=== PATIENT | female | born 1975 | race Caucasian/White ===

== ENCOUNTER 2025-04-14 10:15 | Inpatient (IN) | payer BC, OTHER ==
[~2025-04-14] VITALS: Ht 160 cm; Wt 123.0 kg
[2025-04-14 11:27] LABS: MEAN PLATELET VOLUME 8.0 FL (7.4-10.4); RED CELL DISTRIBUTION WIDTH 14.6 % (11.5-14.5)
--- NOTE | 2025-04-14 11:33 | ELECTROCARDIOGRAPH REPORT ---
[facility] Test Date: 2025-04-14 Test Time: 11:30:33 Pat Name: CALISTA STILES Department: [facility]-ER Patient ID: [facility]-[id number] Room: [place] [address] Gender: F Medical Orderly: : 1975 Requested By: PADMINI SHUKLA Order Number: [id number] Reading MD: Dr. Chuck Duffy Measurements Intervals [place] Rate: 128 P: 51 FL: 125 QRS: -32 QRSD: 85 T: 21 QT: 328 QTc: 479 Interpretive Statements Sinus tachycardia Left axis deviation Low voltage, precordial leads Consider anterior infarct Electronically Signed On 04-14-2025 20:30:[address] Chuck Duffy Please click the below link to view image of tracing.
[2025-04-14 11:37] LABS: CREATININE 1.24 MG/DL (0.40-0.90); TOTAL CARBON DIOXIDE 25.6 MMOL/L (24-32); eCRCL 46 ML/MIN; eGFR 46 ML/MIN
[2025-04-14] MEDS: normal saline 1000ml 1,000 ML IV ONE ×2 (11:58→20:35)
[2025-04-14] MEDS: ondansetron/PF 4mg/2ml inj IV ONE (12:51)
[2025-04-14] MEDS: morphine 4 MG/ML inj SYRINge IV ONE (12:53)
[2025-04-14 13:36] LABS: BANDS% (MANUAL) 25.0 % (0-10); METAMYLEOCYTES% (MANUAL) 1.0 % (0-0); MONOCYTES % (MANUAL) 3.0 % (2-12); NEUTROPHILS % (MANUAL) 71.0 % (42-75)
[2025-04-14 13:37] LABS: PLATELET ESTIMATE NORMAL
[2025-04-14] MEDS ORDERED: piperacillin/tazo 4.5gm/100ml 100 ML IV ONE (13:50)
[2025-04-14] MEDS: piperacillin/tazo 4.5gm/100ml 100 ML IV ONE (14:43)
[2025-04-14 14:57] LABS: URINE HCG NEGATIVE (NEG)
[2025-04-14 15:09] LABS: LEUKOCYTE ESTERASE ,URINE SMALL (Neg); NITRITES, URINE NEGATIVE (Neg); OCCULT BLOOD,URINE MODERATE (Neg)
[2025-04-14 15:27] LABS: UA COLLECTION TYPE URINAL
[2025-04-14 15:28] LABS: SQUAMOUS EPITHELIAL CELL,UR FEW /LPF (FEW)
[2025-04-14 15:29] LABS: YEAST FEW /HPF (NEGATIVE)
--- NOTE | 2025-04-14 15:31 | Physician Documentation ---
History of Present Illness ~ Chief Complaint: See Chief Complaint Stated Complaint: UROLOGY Time Seen by MD: 11:10 OK to notify your PCP?: Yes Mode of Arrival: EMS HPI 49-year-old patient with BMI 48, not diabetic, status post cholecystectomy, gastroesophageal reflux disease/PUD went to local emergency room for the lying to groin pain. She vomitus quite a bit and then she went the ER. In the emergency room they have done the CT scan of the abdomen pelvis in also found to have leukocytosis and UTI and she was treated with antibiotics. CT scan shows 10 mm stone in the pelviureteral junction and they sent her here for further evaluation and treatment by urologist. The patient is a pleasant person and very cooperative with the exam. Medication Reconciliation Allergies: Coded Allergies: No Known Allergies (Unverified , 04/14/25) Review of Systems ROS As stated above in the HPI, otherwise all systems are reviewed and negative. Physical Exam Vital Signs: Temperature: 98.9, Source: Oral, Heart Rate: 120, Respiratory Rate: 24, BP: 124/69, Pulse Oximetry: 93, Weight: 123.000 Physical Exam Vital signs reviewed and they are well within normal range except for tachycardia. Const: Comfortable Head: Atraumatic Eyes: Normal Conjunctiva ENT: Normal External Ears, Nose and Mouth. Moist mucous membranes Neck: Full range of motion. No meningismus Resp: Clear to auscultation bilaterally. Normal work of breathing Cardio: Regular rate and rhythm, no murmurs. Skin well perfused, initial heart rate was 135. Abd: Soft, tender in the left flank and costovertebral angle., non-distended. Normal bowel sounds. No rebound or guarding Skin: No petechiae or rashes. Warm and dry Back: No midline or flank tenderness Ext: No cyanosis, or edema Neuro: Awake and alert Psych: Normal Mood and Affect Progress Results/Orders Results/Orders Orders - PADMINI SHUKLA MD Culture Blood (04/14/25 11:18) BMP (04/14/25 11:18) Ct Abdomen Pelvis (04/14/25 15:13) Piperacillin/Tazo 4.5gm/100ml (Zosyn 4.5 (04/14/25 13:56) Hcg Serum Qt (04/14/25 10:30) Page Hospitalist (04/14/25 15:22) Page Hospitalist (04/14/25 15:23) Cult Urine + Tamms Ct (04/14/25 15:30) C-Reactive Protein (04/14/25 10:30) Hgb A1c (04/14/25 10:30) Liver Panel (04/14/25 10:30) TSH (04/14/25 10:30) Completed Orders - PADMINI SHUKLA MD Cbc/Diff (04/14/25 11:18) Hcg, Ur Ql (04/14/25 11:18) Electrocardiogram (04/14/25 11:18) Normal Saline 1000ml (0.9% Sodium Chlori (04/14/25 11:20) Lacticsepsis (04/14/25 11:18) Ct Abdomen Pelvis (04/14/25 15:13) Lactic,2hr (04/14/25 12:44) Morphine 4mg/Ml Inj. (Morphine Inj.) (04/14/25 12:45) Ondansetron Inj. (Zofran 4mg/2ml Vial) (04/14/25 12:45) Man Diff (04/14/25 10:30) Ringers Solution, Lacted (Lactated Ringe (04/14/25 13:50) Ua W/Microscopic, Cult If Ind (04/14/25 14:40) Medications Received in ER Medications (Trade) Dose Ordered Sig/Hardy Route PRN Reason Start Time Stop Time Status Last Admin Dose Admin Sodium Chloride 1,000 ml @ 200 mls/hr Q5H ONCE IV 04/14/25 11:20 04/14/25 16:19 DC 04/14/25 11:58 200 MLS/HR (morphine inj.) 4 mg ONCE ONCE IV 04/14/25 12:45 04/14/25 12:46 DC 04/14/25 12:53 4 MG (Zofran 4mg/2ml vial) 4 mg ONCE ONCE IV 04/14/25 12:45 04/14/25 12:46 DC 04/14/25 12:51 4 MG Piperacillin/ Tazobactam/ Dextrose 100 ml @ 25 mls/hr ONCE ONCE IV 04/14/25 13:56 04/14/25 17:49 04/14/25 14:43 25 MLS/HR Vital Signs 04/14/25 04/14/25 04/14/25 04/14/25 10:18 10:28 11:26 12:53 Temp 98.2 Pulse 122 127 Resp 24 29 15 15 B/P (MAP) 124/71 137/77 (97) Pulse Ox 96 97 04/14/25 04/14/25 12:56 15:41 Temp 98.9 Pulse 120 108 Resp 24 17 B/P (MAP) 124/69 (87) 120/80 (93) Pulse Ox 93 96 Laboratory Tests Test 04/14/25 10:30 04/14/25 12:54 04/14/25 14:40 White Blood Count 16.4 H Red Blood Count 4.84 Hemoglobin 13.9 Hematocrit 42.0 Mean Corpuscular Volume 87.0 Mean Corpuscular Hemoglobin 28.8 Mean Corpuscular Hemoglobin Concent 33.1 Red Cell Distribution Width 14.6 H Platelet Count 201 Mean Platelet Volume 8.0 Neutrophils (%) (Auto) 95.2 H Lymphocytes (%) (Auto) 2.2 L Monocytes (%) (Auto) 1.8 L Eosinophils (%) (Auto) 0.2 Basophils (%) (Auto) 0.6 Neutrophils # (Auto) 15.6 H Lymphocytes # (Auto) 0.4 L Monocytes # (Auto) 0.3 Eosinophils # (Auto) 0.0 Basophils # (Auto) 0.1 CBC Comment Differential Total Cells Counted 100 Neutrophils % (Manual) 71.0 Band Neutrophils % 25.0 H Monocytes % (Manual) 3.0 Metamyelocytes % 1.0 H Platelet Estimate Normal Red Blood Cell Morphology Normal Basophilic Stippling Sodium Level 142 Potassium Level 4.1 Chloride Level 107 Carbon Dioxide Level 25.6 Anion Gap 9 Blood Urea Nitrogen 12 Creatinine 1.24 H Estimated GFR/1.73 m2 46 BUN/Creatinine Ratio 9.7 L Glucose Level 164 H Hemoglobin A1c 6.1 Lactic Acid Level 3.0 H 2.8 H Calcium Level 8.1 L Albumin 2.8 L HCG Beta Subunit < 1.0 Chemistry Comments Urine Specimen Description Urinal Urine Color Yellow Urine Clarity Cloudy Urine pH 6.0 Urine Specific [place] >=1.030 Urine Protein 30 H Urine Glucose (UA) Negative Urine Ketones Trace H Urine Occult Blood Moderate H Urine Nitrite Negative Urine Bilirubin Small Urine Urobilinogen 0.2 Urine Leukocyte Esterase Small H Urine RBC 0-2 Urine WBC 50-100 H Urine Squamous Epithelial Cells Few Urine Bacteria 1+ Urine Yeast Few Urine Culture Indicated Indicated Volume Urine Centrifuged 10 ml Urine HCG, Qualitative Negative Urine Comment Microbiology Date/Time Source Procedure Growth Status 04/14/25 11:48 Blood Arm Left Blood Culture - Preliminary NEGATIVE (LESS THAN 24 HOURS) Resulted Medical Decision Making Findings ER Course/Med. Decision Making REVIEW of RECORD(S): Previous medical records here and/or external medical records, such as that provided directly by the patient, by EMS and/or outside medical facilities, if available, were reviewed. COMORBIDITIES MDM During the physical examination, the findings suggestive of acute life- threatening condition such as JVD, tracheal deviation, acidotic breathing, noisy stridorous breath sounds, pulses paradoxus, muffled heart sounds, unequal breath sounds, abdominal rigidity and rebound tenderness, focal neurological deficits, cool clammy skin, severe hypotension, severe tachycardia or bradycardia are absent. Patient presenting for . Vital signs reviewed. Patient is hemodynamically stable and does not meet SIRS criteria. Patient appears nontoxic on exam. Patient is a leukocytosis but renal functions are normal. She got fluids and IV Zosyn. TREATMENT/DISPOSITION: The patient's presentation is most consistent with acute pyelonephritis with obstructive uropathy left side. I have spoken with Dr. Talbot at 16:20 hours and he will let us know when he can take her for urological intervention. DISCLAIMER: Inadvertent spelling and grammatical errors are likely due to EMR/dictation software use and do not reflect on the overall quality of patient care. Note that the electronic time recorded on this note does not necessarily reflect the actual time of the patient encounter. Departure Disposition: ADMITTED INPATIENT Impression: Primary Impression: Pyelonephritis Additional Impressions: Urolithiasis Left ureteral stone Condition: Stable Referrals: NO PRIMARY CARE PROVIDER (PCP) Signature Scribe Signature: x Attestation: PADMINI Moody MD Apr 14, 2025 15:31
--- NOTE | 2025-04-14 15:41 | RADIOLOGY REPORT ---
Exam: CT CT ABDOMEN PELVIS History: Pain in the flank Comparison Study: None TECHNIQUE: Multidetector CT of the abdomen pelvis without IV contrast. Axial, coronal and sagittal multiplanar reformats were obtained from the axial data set by the technologist. Radiation Dose Information: CT Dose: CTDI volume is 35.83 mGy. Dose-length product is 2066.72 mGy*cm FINDINGS: Bibasilar atelectasis. Partially visualized heart is unremarkable. Mild hepatosplenomegaly with hepatic steatosis. Status post cholecystectomy. Pancreas and adrenal glands unremarkable. Asymmetric moderate left-sided perinephric fat stranding with moderate left Tullos nephrosis an obstructing 1.6 x 1 cm calculus over the left ureteropelvic junction. The right kidney is unremarkable. Urinary bladder is unremarkable. Status post hysterectomy. Mild gastric wall thickening. Small bowel loops unremarkable. Appendix is unremarkable. Distal rectal wall thickening. Small to moderate amount of fecal material within the colon. No evidence of intraperitoneal free air or free fluid. No evidence of aortic aneurysm. No significant lymphadenopathy. Small fat containing umbilical hernia. Minimal body wall edema. No evidence of acute osseous abnormalities. IMPRESSION: Moderate left hydro nephrosis with moderate asymmetric left-sided perinephric fat stranding and associated left 1.6 x 1 cm ureteropelvic junction obstructing calculus. Mild proctitis. Mild gastric wall thickening which may be due to inadequate distention with mild gastritis not excluded.
[2025-04-14] MEDS ORDERED: magnesium sulf-water 4G/100mL 100 ML IV PRN (15:45)
[2025-04-14] MEDS ORDERED: magnesium hydroxide 30ml (MOM) UD suspension PO PRN (15:45)
[2025-04-14] MEDS ORDERED: magnesium sulf-water 2g/50mL 50 ML IV PRN (15:45)
[2025-04-14] MEDS ORDERED: mag hydrox/Alum hydrox/simeth 30ml oral suspension PO PRN (15:45)
[2025-04-14] MEDS ORDERED: magnesium Cl slow-release 64mg tablet PO PRN (15:45)
[2025-04-14] MEDS ORDERED: potassium Cl 40MEQ/1/2NS 520ml 520 ML IV PRN (15:45)
[2025-04-14] MEDS ORDERED: potassium Cl 20 mEq SR tablet PO PRN (15:45)
[2025-04-14] MEDS ORDERED: HYDROcodone/acetaminophen 5mg/325mg tablet PO PRN (15:45)
[2025-04-14] MEDS: ringers solution, lacted 1,000 ML IV SCH (15:55)
[2025-04-14] MEDS ORDERED: morphine 4 MG/ML inj SYRINge IV PRN ×2 (15:58→15:59)
--- NOTE | 2025-04-14 16:04 | HISTORY AND PHYSICAL-Residence ---
History & Physical Providers to CC Resident Creating Document: JHONSTORMYJANNETKEYLA ~ History of Present Illness Reason for Admit\Complaint: Acute pyelonephritis, obstructive ureterolithiasis History of Present Illness This is a 49-year-old female patient who was transferred from [facility] for urology evaluation. Patient had sudden severe left lower quadrant abdominal pain 9/10 in intensity radiating to the back associated with diaphoresis, dizziness, nausea and vomiting. She denies fever or hematuria but complains of dysuria and urgency. No previous history of kidney stone reported. She was initially treated with IV fluids, ceftriaxone and pain management. Patient denies any other symptoms including chest pain, shortness of breath, productive cough or diarrhea. Pain is now controlled 4/10 in intensity. No other symptoms at this moment. 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[employer]) ROS Constitutional: Reports: malaise, weakness Eyes: Reports: no symptoms reported ENT: Reports: no symptoms reported Respiratory: Reports: no symptoms reported Cardiovascular: Reports: diaphoresis, lightheadedness Gastrointestinal: Reports: see HPI, abdomen distended, abdominal pain, nausea, vomiting, poor appetite, poor fluid intake Genitourinary: Reports: dysuria, frequency, decreased urine output Female Genitalia: Reports: no reported symptoms Neurological: Reports: dizziness Musculoskeletal: Reports: back pain Integumentary: Reports: no symptoms reported Allergic/Immunologic: Reports: no symptoms reported Hematologic/Lymphatic: Reports: no symptoms reported Endocrine: Reports: no symptoms reported Psychiatric: Reports: no symptoms reported Exam Vitals: Vital Signs Date Time Temp Pulse Resp B/P (MAP) Pulse Ox O2 Delivery O2 Flow Rate FiO2 04/14/25 15:41 108 17 120/80 (93) 96 04/14/25 12:56 98.9 General: General: Awake and Alert, no acute distress. Morbid obesity. Pain is controlled. HEENT: Conjunctiva pink, Sclera clear, Mucus Membranes dry. Neck: Supple without masses and tenderness. Resp: Unlabored. Lungs clear to auscultation bilaterally. Heart: Tachycardic, regular Rate and rhythm, normal S1 and S2 without murmur, rub or gallop. Abdomen: Distended, tenderness to palpation on the left lower quadrant, no rebound or guarding, no organomegaly. Positive left CVA tenderness. Extremities: Trace lower extremity peripheral edema. Peripheral pulses are palpable and symmetrical. No cyanosis or clubbing. Skin: Warm and Dry. Neuro: Awake, alert, oriented, speech is normal Cranial nerve exam-normal visual field, normal extraocular movements, normal facial sensations and facial movements, normal hearing, uvula in midline, tongue protrusion and shoulder shrugging normal Strength-normal bulk, normal tone, bilateral upper and lower extremity 5/5, deep tendon reflexes-2, absent Babinski Cerebellar-normal finger-nose test Diagnostic Data Last Recorded Lab Results: 04/14/25 1030 04/14/25 1030 Advance Care Planning Advanced Care plannin - 30 Minutes (I have discussed advanced care directives. Patient requests full code status.) Additional Plan Assessment 49-year-old female patient presents for severe left lower quadrant abdominal pain associated with poor oral intake, nausea, vomiting and dysuria. 1. Severe sepsis secondary to acute left pyelonephritis 2. Left hydronephrosis 2/2 acute ureteropelvic junction obstructing calculus. SIRS criteria (tachycardia, tachypnea, elevated WBC) + source of infection + elevated lactic acid Sudden severe LLQ pain associated with nausea, vomiting and anorexia Dysuria and urinary frequency, no hematuria reported Positive CVA tenderness, clinically dehydrated Heart rate 120bpm, EKG: Sinus tachycardia, no ischemic signs. Lactic acid 3.0, WBC 16.4, procalcitonin 1.19 , CRP 6.94 Urinalysis: 50-100 WBC, positive leukocyte esterase, occult blood positive Abdomen CT: Moderate left hydro nephrosis with moderate asymmetric left-sided perinephric fat stranding and associated left 1.6 x 1 cm ureteropelvic junction obstructing calculus. Plan Received 1000 mL of normal saline in the ER Started on lactated ringer 125 mL/hr Started on Zosyn 4.5g q8h Urology consulted in the ER, pending evaluation Pain management, Zofran/Reglan as needed, NPO 3. Acute kidney injury most likely related to vasomotor nephropathy, prerenal Patient clinically dehydrated Presents with sepsis, vomiting and poor oral intake Cr 1.24, BUN 12, baseline unknown Plan Continue IV fluids Ordered urine lytes Monitor daily 4. GERD Abdomen CT: Mild gastric wall thickening which may be due to inadequate distention with mild gastritis not excluded. Patient uses omeprazole OTC Started on pantoprazole 40 mg IV daily 5. Prediabetes 6. Morbid obesity Ordered A1c Nutrition consult is appreciated NPO for now Code Status: Full code DVT prophylaxis: Enoxaparin Analgesia/sedation: Morphine/[place] Line/tube: PIV GI prophylaxis: Pantoprazole Nutrition: NPO Prognosis: Guarded Physical therapy: Not ordered, patient ambulates normally Disposition: Admit to surgical floor. Pending Urology evaluation. Resident attestation The above note has been reviewed and supervised by a senior resident PGY2/PGY3 Patient was seen, examined and discussed with the attending physician Date of Service: Apr 14, 2025 Billing Provider: LJ ELDER MD, LUCAS, RES Apr 14, 2025 16:04
[2025-04-14] MEDS: ringers solution, lacted 1,000 ML IV ONE ×2 (16:27→16:50)
--- NOTE | 2025-04-14 16:41 | CONSULTATION REPORT ---
Consult Providers to CC ~ History of Present Illness Reason for Admit\Complaint: Left flank pain History of Present Illness Patient presented to an outside hospital with left sided flank pain. CT scan shows an obstructing stone at the left UPJ. Patient has been vomiting and having pain. Significant stranding around the left kidney. Allergies: Coded Allergies: No Known Allergies (Unverified , 04/14/25) ROS ROS A pertinent 10 point review of systems was performed and was normal except as otherwise noted. Please also see HPI for added review of systems. Exam Vitals: Vital Signs Date Time Temp Pulse Resp B/P (MAP) Pulse Ox O2 Delivery O2 Flow Rate FiO2 04/14/25 15:41 108 17 120/80 (93) 96 04/14/25 12:56 98.9 General: General: Awake and Alert, no acute distress. HEENT: HEENT: Conjunctiva pink, Sclera clear, Mucus Membranes moist. Neck: Neck: Supple without masses and tenderness. Chest: Resp: Unlabored. Cardiovascular: Heart: Tachycardic Abdomen: Abdomen: Soft and non tender no organomegaly Extremities: Extremities: No cyanosis,clubbing or edema. Skin: Skin: Warm and Dry. Diagnostic Data Last Recorded Lab Results: 04/14/25 1030 04/14/25 1030 Diagnostic Data: 04/14/25 CT Abdomen Pelvis: Left hydronephrosis with proximal ureteral stone. 13 mm in greatest dimension. Stranding around the left kidney. Problems: (1) Left ureteral stone Status: Acute Assessment & Plan: Left ureteral stone. Would benefit from stent placement in the operating room. I discussed risks of the surgery including infection, bleeding, damage to surrounding tissues, and need for subseuent procedures. I discussed benefits including decompression of the left kidney and improvement of pain. I discussed alternatives including medical expulsive therapy. with the patient. After discussion she consented to surgery. - NPO after midnight - OR tomorrow for cystoscopy, left retrograde pyelogram, left ureteral stent placement HO MORALES MD Apr 14, 2025 16:41
--- NOTE | 2025-04-14 17:29 | RADIOLOGY REPORT ---
CHEST RADIOGRAPH Indication: Sepsis, elevated procalcitonin Technique: Frontal and lateral view of the chest was obtained Comparison: None FINDINGS: Lines and Tubes: None Lungs: Clear Pleura: No effusion. No pneumothorax. Cardiomediastinal contours: Unremarkable Bones: Unremarkable IMPRESSION: No evidence of acute disease.
[2025-04-14 18:00] VITALS: BP 98/56; PULSE 96; RESP 18; TEMP 97.3; O2SAT 93
[2025-04-14] MEDS: K and/or MAG REPLACEMENT MC SCH (19:26)
[2025-04-14 20:00] VITALS: RESP 18; O2SAT 93
[2025-04-14] MEDS: ondansetron/PF 4mg/2ml inj IV PRN (20:25)
[2025-04-14] MEDS: docusate sod 100mg capsule PO SCH (20:29)
[2025-04-14] MEDS: HYDROcodone/acetaminophen 10/325mg tab PO PRN (21:57)
[2025-04-14 22:00] VITALS: BP 101/70; PULSE 98; RESP 20; TEMP 98.9; O2SAT 92
[2025-04-14] MEDS: metoclopramide 5 mg/ml inj IV PRN (22:00)
[2025-04-14] MEDS: piperacillin/tazo 4.5gm/100ml 100 ML IV SCH (22:06)
[2025-04-15] VITALS (18 sets, daily range): BP systolic 102–142; BP diastolic 51–91; PULSE 88–106; RESP 16–23; TEMP 98.1–98.9; O2SAT 92–99
[2025-04-15 05:49] LABS: MEAN PLATELET VOLUME 8.0 FL (7.4-10.4); RED CELL DISTRIBUTION WIDTH 14.7 % (11.5-14.5)
[2025-04-15 06:14] LABS: CREATININE 1.23 MG/DL (0.40-0.90); TOTAL CARBON DIOXIDE 27.6 MMOL/L (24-32); eCRCL 47 ML/MIN; eGFR 47 ML/MIN
[2025-04-15] MEDS ORDERED: iohexol 300mg/ml 100ml inj. ONE (07:14)
[2025-04-15] MEDS: enoxaparin 40mg/0.4ml syringe SUBCUT SCH (07:47)
[2025-04-15] MEDS ORDERED: enalaprilat 1.25mg/ml 2ml vial IV PRN (08:10)
[2025-04-15] MEDS: ringers solution, lacted 1,000 ML IV SCH (08:10)
[2025-04-15] MEDS ORDERED: fentaNYL/PF 50MCG/1 ML 2ML syringe IV PRN ×2 (08:10)
[2025-04-15] MEDS ORDERED: labetalol 20mg/4ml (5mg/ml) syringe IV PRN (08:10)
[2025-04-15] MEDS ORDERED: morphine 4 MG/ML inj SYRINge IV PRN ×2 (08:10)
[2025-04-15] MEDS ORDERED: ondansetron/PF 4mg/2ml inj IV PRN (08:10)
[2025-04-15] MEDS ORDERED: HYDROmorphone/PF 0.2 MG/ML SYRINGE IV PRN ×2 (08:10)
[2025-04-15] MEDS ORDERED: fentaNYL/PF 50MCG/1 ML 2ML syringe ONE (08:15)
[2025-04-15] MEDS ORDERED: midazolam 1 mg/ML 2ml injection ONE (08:15)
[2025-04-15] MEDS ORDERED: LIDOcaine 2% (20mg/ml) 5ml vial ONE (08:17)
[2025-04-15] MEDS ORDERED: propofol inj 20 ML IV ONE (08:17)
[2025-04-15] MEDS: iohexol 300mg/ml 100ml inj. IV ONE (08:28)
--- NOTE | 2025-04-15 09:14 | OPERATIVE REPORT ---
Operative Report Providers to ~ Date of Procedure: Apr 15, 2025 Pre-Operative Diagnosis: Acute pyelonephritis, obstructive ureterolithiasis Post-Operative Diagnosis SAME as PRE-Op Procedure Performed Cystoscopy, left retrograde pyelogram, left ureteral stent placement. Surgeon: MD Antione Paint Specialist None Anesthesiologist: Ramiro Lou Type of Anesthesia: Regional Findings: Left obstruction with purulent urine. Complications None Prosthetics\Implants used: Left 6 x 24 double J ureteral stent Estimated Blood Loss: Minimal Specimen Removed: None Description of Procedure: Patient was brought to the operating room, given sedation with local around the urethra, and prepped and draped in the normal sterile fashion. A timeout was performed. A 22 montenegrin cystoscope was inserted via urethra. There was some purulence in the posterior of the bladder. I drained the bladder completely. Following this I found the left ureteral orifice, intubated it with a 5 montenegrin open ended catheter, and performed a retrograde pyelogram by injecting contrast. This showed obstruction at the left UPJ from the stone. A wire was passed easily up into the left kidney. A 6x24 double J ureteral stent was passed over the wire into the left kidney. The wire was removed. There was good coil on the proximal portion of the stent on spot fluoroscopy, and good coil on the distal portion on direct visualization. The patient was awakened from sedation and transferred to the post-operative care unit in good condition. HO MORALES MD Apr 15, 2025 09:14
--- NOTE | 2025-04-15 18:49 | PROGRESS NOTE- Residence ---
Progress Note - Resident Providers to CC Resident Creating Document: SHONNA CANO RES ~ Antibiotic Timeout Antibiotic Ordered?: No Subjective Patient was seen and examined on bedside, after stent placement she reports that she had kidney stone one year ago on left side which passed on its own, currently she is complaining of dysuria, hematuria. She had no bowel movements but is passing gas Objective Vital Signs Date Time Temp Pulse Resp B/P (MAP) Pulse Ox O2 Delivery O2 Flow Rate FiO2 04/15/25 12:03 Room Air 04/15/25 11:15 98.1 88 18 114/73 (87) 98 2.0 Result Diagram: 04/15/2552004/15/25520 General: awake, alert oriented to place, time, and person HEENT: No pallor present, no icterus, moist mucous membranes Neck: No masses and tenderness Resp: Unlabored. Lungs clear to auscultation bilaterally. Chest: Normal expansion. Cardiovascular: Regular Rate and rhythm, normal S1 and S2 without murmur, rub or gallop Abdomen: Soft and non tender in epigastrium, no organomegaly, no guarding and rigidity, bowel sounds present Neuro: No focal weakness in the upper and lower limb muscles, power of the muscles 5/5 bilateral upper and lower extremities, normal reflexes bilaterally. Cranial nerves intact Extremities: No cyanosis,clubbing or edema Skin: Warm and Dry. Psych: Normal affect Plan Plan 49-year-old female patient presents for severe left lower quadrant abdominal pain associated with poor oral intake, nausea, vomiting and dysuria. 1. Severe sepsis secondary to acute left pyelonephritis 2. Left hydronephrosis 2/2 acute ureteropelvic junction obstructing calculus. SIRS criteria (tachycardia, tachypnea, elevated WBC) + source of infection + elevated lactic acid on POA Lactic acidosis resolved, leukocytosis trending downward Continue Zosyn q.8h day 2 UA positive for UTI Patient is complaining of dysuria and hematuria Follow up with CBC Abdomen CT: Moderate left hydronephrosis with moderate asymmetric left-sided perinephric fat stranding and associated left 1.6 x 1 cm ureteropelvic junction obstructing calculus. Dr. Talbot was consulted and patient underwent: Cystoscopy, left retrograde pyelogram, left ureteral stent placement. UA positive 3. Acute kidney injury most likely related to vasomotor nephropathy, prerenal Cr 1.24, BUN 12, baseline unknown Continue IV fluids Follow up with urine lytes Monitor daily CMP 4. GERD Abdomen CT: Mild gastric wall thickening which may be due to inadequate distention with mild gastritis not excluded. Patient uses omeprazole OTC Continue pantoprazole 40 mg IV daily 5. Prediabetes 6. Morbid obesity Code Status: Full code DVT prophylaxis: Enoxaparin Analgesia/sedation: Morphine/[place] Line/tube: PIV GI prophylaxis: Pantoprazole IV 40 mg Nutrition: Regular diet Disposition: Patient underwent left ureteral stent placement with Dr. Talbot, she will likely be discharged tomorrow, Please consult Dr. Talbot before discharging. Date of Service: Apr 15, 2025 Billing Provider: LJ ELDER MD,SHONNA, RES Apr 15, 2025 18:49
[2025-04-16 06:09] LABS: CREATININE 0.95 MG/DL (0.40-0.90); TOTAL CARBON DIOXIDE 30.1 MMOL/L (24-32); eCRCL 61 ML/MIN; eGFR 63 ML/MIN
[2025-04-16 06:12] LABS: MEAN PLATELET VOLUME 8.6 FL (7.4-10.4); RED CELL DISTRIBUTION WIDTH 14.8 % (11.5-14.5)
[2025-04-16 06:56] VITALS: BP 140/86; PULSE 88; RESP 16; TEMP 98.8; O2SAT 98
[2025-04-16 08:00] VITALS: RESP 16; RESP 18; O2SAT 98
[2025-04-16 11:22] VITALS: BP 150/93; PULSE 86; RESP 17; TEMP 98.1; O2SAT 96
[2025-04-16 18:00] VITALS: BP 151/79; PULSE 88; RESP 18; TEMP 97.7; O2SAT 95
[2025-04-16] MEDS: metoclopramide 5 mg/ml inj IV ONE (19:29)
[2025-04-16] MEDS: acetaminophen 1,000mg/100ml IV 100 ML IV ONE (19:36)
[2025-04-16 20:00] VITALS: RESP 16
--- NOTE | 2025-04-16 20:31 | PROGRESS NOTE- Residence ---
Progress Note - Resident Providers to CC Resident Creating Document: CORONA BASHIR, KEYLA ~ Antibiotic Timeout Antibiotic Ordered?: Yes Subjective Patient was seen and examined on bedside. She reports mild back pain with nausea and she passed gas and bowel movement Objective Vital Signs Date Time Temp Pulse Resp B/P (MAP) Pulse Ox O2 Delivery O2 Flow Rate FiO2 04/16/25 11:22 98.1 86 17 150/93 (112) 96 Nasal Cannula 2.0 Result Diagram: 04/16/2552304/16/25523 Advance Care Planning Advanced Care plannin - 30 Minutes Plan Plan 49-year-old female patient presents for severe left lower quadrant abdominal pain associated with poor oral intake, nausea, vomiting and dysuria. 1. Severe sepsis secondary to acute left pyelonephritis Resolving 2. Left hydronephrosis 2/2 acute ureteropelvic junction obstructing calculus s/p left ureteral stent placement Dr. Talbot On the day of admission- SIRS criteria (tachycardia, tachypnea, + source of infection + elevated lactic acid on POA Lactic acidosis resolved, leukocytosis trending downward Continue Zosyn q.8h day 2 UA positive for UTI Patient is complaining of dysuria and hematuria Follow up with CBC Abdomen CT: Moderate left hydronephrosis with moderate asymmetric left-sided perinephric fat stranding and associated left 1.6 x 1 cm ureteropelvic junction obstructing calculus. Dr. Talbot was consulted and patient underwent: Cystoscopy, left retrograde pyelogram, left ureteral stent placement. UA positive 04/16/2025 Vitals are stable Continue Zosyn q.8h day 3 3. Acute kidney injury most likely related to vasomotor nephropathy, prerenal Continue IV fluids Follow up with urine lytes Monitor daily CMP 4. Nausea Given diphenhydramine and metoclopramide IV once 5)GERD Continue pantoprazole 40 mg IV daily 6). Prediabetes 7). Morbid obesity Code Status: Full code DVT prophylaxis: Enoxaparin Analgesia/sedation: Morphine/Charlotte Line/tube: PIV GI prophylaxis: Pantoprazole IV 40 mg Nutrition: Regular diet Disposition: Patient will be monitored in the surgery and she undergone urethral stent placement by Dr. Talbot Pending PT evaluation Date of Service: Apr 16, 2025 Billing Provider: LJ ELDER MD, SATISH, RES Apr 16, 2025 20:31
[2025-04-16 22:00] VITALS: BP 128/88; PULSE 86; RESP 16; TEMP 98.2; O2SAT 98
[2025-04-17 06:10] LABS: CREATININE 0.68 MG/DL (0.40-0.90); TOTAL CARBON DIOXIDE 27.6 MMOL/L (24-32); eCRCL 85 ML/MIN; eGFR > 90 ML/MIN
[2025-04-17 06:18] LABS: MEAN PLATELET VOLUME 8.8 FL (7.4-10.4); RED CELL DISTRIBUTION WIDTH 14.5 % (11.5-14.5)
[2025-04-17 07:02] VITALS: BP 107/64; PULSE 84; RESP 18; TEMP 98.5; O2SAT 96
[2025-04-17] MEDS: pantoprazole 40mg Tablet.DR PO SCH (07:44)
[2025-04-17] MEDS ORDERED: PANT40TA54 PO (07:45)
[2025-04-17] MEDS ORDERED: LACT1CAP26 PO (07:45)
[2025-04-17] MEDS ORDERED: AMOX-580 PO (07:45)
[2025-04-17] MEDS: potassium Cl 20 mEq SR tablet PO PRN (08:12)
[2025-04-17 08:22] VITALS: RESP 16
--- NOTE | 2025-04-17 09:45 | RADIOLOGY REPORT ---
CHEST RADIOGRAPH Indication: Low spO2 Technique: Single frontal view of the chest was obtained Comparison: DI CHEST,TWO VIEWS on DOS: 04/14/25 FINDINGS: Lines and Tubes: None Lungs: No focal consolidation. Pleura: No effusion. No pneumothorax. Cardiomediastinal contours: Unremarkable Bones: No acute osseous abnormality. IMPRESSION: No acute cardiopulmonary disease.
--- NOTE | 2025-04-17 09:49 | RADIOLOGY REPORT ---
C-ARM FLUOROSCOPY: PROCEDURE: Cystogram and internal ureteral stent placement FLUOROSCOPY TIME: 5.3 Air Kerma: 3.3 mgy FINDINGS: Spot intraoperative C arm radiographs demonstrating cystogram and left internal ureteral stent placement. IMPRESSION: Please refer to surgical report for detailed findings.
[2025-04-17 10:54] VITALS: BP 135/73; PULSE 70; RESP 19; TEMP 97.6; O2SAT 98
--- NOTE | 2025-04-17 19:00 | DISCHARGE SUMMARY-Residence ---
Discharge Summary Providers to CC Resident Creating Document: JEROME SIMMS RES CC: LJ ELDER MD ~ Discharge Summary Admission Diagnosis: Acute pyelonephritis, obstructive ureterolithiasis Hospital Course DATE OF ADMISSION: 04/14/2025 DATE OF DISCHARGE: 04/17/2025 Discharge Diagnosis\Comment: Severe sepsis secondary to acute left pyelonephritis, present on admission Left hydronephrosis 2/2 acute ureteropelvic junction obstructing calculus s/p left ureteral stent placement Acute kidney injury most likely related to vasomotor nephropathy, prerenal GERD Prediabetes Morbid obesity Operations\Procedures: Left ureteral stent placement Consultants: HO MORALES MD - Urologist Complications: None Condition on DC: Stable New Medications: Amox Tr/Potassium Clavulanate 875/125 MG (Augmentin 875/125 MG) 875 Mg-125 Mg Tablet 1 TAB PO BID for 5 Days, #10 TAB Lactobacillus Rhamnosus (Culturelle) 10 Billion Cell Capsule 1 CAP PO DAILY for 30 Days, #60 CAP 0 Refills Pantoprazole Sodium (Pantoprazole Sodium) 40 Mg Tablet.dr 40 MG PO BKF for 30 Days, #30 TAB.SR Discharge Summary: HPI as per admitting physician:This is a 49-year-old female patient who was transferred from [facility] for urology evaluation. Patient had sudden severe left lower quadrant abdominal pain 9/10 in intensity radiating to the back associated with diaphoresis, dizziness, nausea and vomiting. She denies fever or hematuria but complains of dysuria and urgency. No previous history of kidney stone reported. She was initially treated with IV fluids, ceftriaxone and pain management. Patient denies any other symptoms including chest pain, shortness of breath, productive cough or diarrhea. Pain is now controlled 4/10 in intensity. Hospital course: A 49-year-old female patient who was transferred from [facility] for urology evaluation. Patient developed sudden severe left lower quadrant pain and rated the pain a nine on 10, on admission patient had tachycardia tachypnea and elevated lactic acidosis with leukocytosis. Urinalysis was positive for UTI We initiated the patient on antibiotics and fluids. Abdominal CT was done which reported moderate left hydronephrosis and associated left 1.6x1 cm ureteropelvic junction obstructing calculus. Dr. Morales, urologist was consulted and patient underwent cystoscopy, left retrograde pyelogram and left ureteral stent placement. Patient developed acute kidney injury most likely related to vasomotor nephropathy her creatinine came back to baseline with adequate fluids. Patient's HbA1c was 6.1, diagnosed with prediabetes. We educated the patient on diet control. Patient is morbidly obese with a BMI of 48 kg/m2, patient possibly has obstructive sleep apnea and her oxygen saturation was in 86-88% per 6 minute walk. Patient required 2 L of oxygen, and requires outpatient sleep study. We are discharging the patient with 2 L home oxygen and recommended outpatient follow up with primary care doctor Significant imaging Abdominal CT 04/14/2025 Moderate left hydro nephrosis with moderate asymmetric left-sided perinephric fat stranding and associated left 1.6 x 1 cm ureteropelvic junction obstructing calculus. Physical examination the time of discharge Patient is requiring 2 L of oxygen on discharge General: awake, alert oriented to place, time, and person HEENT: No pallor present, no icterus, moist mucous membranes Neck: No masses and tenderness Resp: Unlabored. Lungs clear to auscultation bilaterally. Chest: Normal expansion. Cardiovascular: Regular Rate and rhythm, normal S1 and S2 without murmur, rub or gallop Abdomen: Soft and non tender in epigastrium, no organomegaly, no guarding and rigidity, bowel sounds present Neuro: No focal weakness in the upper and lower limb muscles, power of the muscles 5/5 bilateral upper and lower extremities, normal reflexes bilaterally. Cranial nerves intact Extremities: No cyanosis,clubbing or edema Skin: Warm and Dry. Psych: Normal affect Vital Signs Date Time Temp Pulse Resp B/P (MAP) Pulse Ox O2 Delivery O2 Flow Rate FiO2 04/17/25 10:54 97.6 70 19 135/73 (93) 98 Nasal Cannula 2.0 Laboratory Tests Test 04/16/25 05:24 04/17/25 05:24 White Blood Count 10.5 X10'3 8.1 X10'3 Red Blood Count 3.76 X10'6 3.83 X10'6 Hemoglobin 11.0 g/dl 11.2 g/dl Hematocrit 33.2 % 33.3 % Mean Corpuscular Volume 88.4 FL 86.9 FL Mean Corpuscular Hemoglobin 29.3 PG 29.2 PG Mean Corpuscular Hemoglobin Concent 33.1 g/dL 33.6 g/dL Red Cell Distribution Width 14.8 % 14.5 % Platelet Count 159 X10'3 175 X10'3 Mean Platelet Volume 8.6 FL 8.8 FL Hematology Comments Sodium Level 141 MMOL/L 138 MMOL/L Potassium Level 4.0 MMOL/L 3.4 MMOL/L Chloride Level 107 MMOL/L 104 MMOL/L Carbon Dioxide Level 30.1 MMOL/L 27.6 MMOL/L Anion Gap 4 6 Blood Urea Nitrogen 9 MG/DL 7 MG/DL Creatinine 0.95 MG/DL 0.68 MG/DL Estimated GFR/1.73 m2 63 ML/MIN > 90 ML/MIN BUN/Creatinine Ratio 9.5 10.3 Glucose Level 127 MG/DL 119 MG/DL Calcium Level 7.9 MG/DL 8.1 MG/DL Magnesium Level 2.0 MG/DL 1.8 MG/DL Albumin 2.0 G/DL 2.0 G/DL Chemistry Comments Procalcitonin 0.89 NG/ML Discharge instructions FOLLOW UP WITH PRIMARY CARE PHYSICIAN IN 1 WEEK WITH CBC AND CMP Please follow with your primary care doctor for a possible sleep study for obstructive sleep apnea Continue Augmentin 875/125 mg p.o. b.i.d. for 5 days Continue pantoprazole 40 mg p.o. BKF READ ADVERSE EFFECTS OF MEDICATIONS PRESCRIBED . CALL 911 OR VISIT ER IF EMERGENCY Follow up with Dr. Morales for follow up with stent placement. Discharge medications New Medications: Amox Tr/Potassium Clavulanate 875/125 MG (Augmentin 875/125 MG) 875 Mg-125 Mg Tablet Lactobacillus Rhamnosus (Culturelle) 10 Billion Cell Capsule Pantoprazole Sodium 40 Mg Tablet.dr *Problems/Diagnosis: (1) Left ureteral stone Status: Acute Total Time Spent on D/C: Up to 30 Minutes Date of Service: Apr 17, 2025 Billing Provider: LJ ELEDR MD, JAHNAVI, RES Apr 17, 2025 18:59
== END 2025-04-17 18:19 | disposition home or self-care (01) | DRG 853 ==
LOC: ER 10:15 → ED HOLD 15:52 → SUR 3N 17:20
PROVIDERS: ADMIT Family Medicine; ATTEND Family Medicine
PROC: BT1F1ZZ Fluoroscopy of Left Kidney, Ureter and Bladder using Low Osmolar Contrast (ICD-10-PCS; 2025-04-15)
PROC: 0T778DZ Dilation of Left Ureter with Intraluminal Device, Via Natural or Artificial Opening Endoscopic (ICD-10-PCS; principal; 2025-04-15 08:05)
DX: A41.9 Sepsis, unspecified organism (principal); N17.0 Acute kidney failure with tubular necrosis; N13.6 Pyonephrosis; Z68.42 Body mass index [BMI] 45.0-49.9, adult; E87.20 Acidosis, unspecified; R65.20 Severe sepsis without septic shock; K21.9 Gastro-esophageal reflux disease without esophagitis; R73.03 Prediabetes; E66.01 Morbid (severe) obesity due to excess calories; Z90.49 Acquired absence of other specified parts of digestive tract; G47.33 Obstructive sleep apnea (adult) (pediatric)
CPT/HCPCS: 96361; 96365; 96375; 99285; Z7506; 36415; 71045; 71046; 74176; 77002; 80048; 80076; 81001; 81025; 82948; 83036; 83605; 83735; 83880; 84145; 84443; 84702; 85007; 85025; 85027; 86140; 87040; 87081; 87088; 93005; A4615; A4618; A6258; C1758; C1769; C2617; G0378; J0131; J1200; J1650; J2003; J2250; J2270; J2405; J2470; J2543; J2704; J2765; J3010; J7030; J7120; Q9967